=== PATIENT | female | born 1955 | race Caucasian/White ===

== ENCOUNTER 2017-03-03 12:42 | Emergency (ER) | payer SELFPAY ==
[~2017-03-03] VITALS: Ht 165.1 cm; Wt 77.1 kg
--- NOTE | 2017-03-03 12:55 | NUR ---
MSE DONE BY DR VICENTE AT BEDSIDE PATIENT IN ROOM 02A.
[2017-03-03] MEDS ORDERED: METF500T4 PO (13:00)
[2017-03-03] MEDS ORDERED: HYDR25TA4 PO (13:00)
[2017-03-03] MEDS ORDERED: LOSA50TA21 PO (13:00)
[2017-03-03] MEDS ORDERED: ACETAMINOPHEN/CODEINE 300-60 MG TABLET PO STA (13:00)
[2017-03-03] MEDS ORDERED: PRED2.5T PO (13:00)
[2017-03-03] MEDS ORDERED: ACETAMINOPHEN/CODEINE 300-30 MG TABLET PO ONE ×2 (13:15)
[2017-03-03 13:18] VITALS: BP 135/79
--- NOTE | 2017-03-03 13:20 | NUR ---
Patient discharged to home in stable conditon. Written and verbal after care instructions given. Patient verbalizes understanding of instructions.
[2017-03-03] MEDS ORDERED: ACETAMINOPHEN/CODEINE 300-30 MG TABLET ONE ×2 (13:21→13:25)
--- NOTE | 2017-03-03 13:21 | NUR ---
NO ADVERSE REACTION TO MEDICATIONS. PATIENT WILL FOLLOW WITH LIST OF PMD FOR PAIN MANAGEMENT.
== END 2017-03-03 13:40 | disposition home or self-care (01) ==
LOC: ER 12:42
DX: Z76.0 Encounter for issue of repeat prescription (principal); G89.29 Other chronic pain; M25.511 Pain in right shoulder; I10 Essential (primary) hypertension; E11.9 Type 2 diabetes mellitus without complications; Z88.1 Allergy status to other antibiotic agents; Z91.018 Allergy to other foods
CPT/HCPCS: A4663

== ENCOUNTER 2017-03-17 10:53 | Emergency (ER) | payer MEDICAID ==
[~2017-03-17] VITALS: Ht 165.1 cm; Wt 72.6 kg
[~2017-03-17 10:53] MED LIST: HYDR25TA4 PO; LOSA50TA21 PO; METF500T4 PO; PRED2.5T PO
--- NOTE | 2017-03-17 11:20 | NUR ---
Dr Durand at the bedside for eval and exam.
--- NOTE | 2017-03-17 11:36 | NUR ---
Patient discharged to home in stable conditon. Written and verbal after care instructions given. Patient verbalizes understanding of instructions.
[2017-03-17 11:37] VITALS: BP 143/85
== END 2017-03-17 11:40 | disposition home or self-care (01) ==
LOC: ER 10:53
DX: J20.9 Acute bronchitis, unspecified (principal); I10 Essential (primary) hypertension; E11.9 Type 2 diabetes mellitus without complications; M79.7 Fibromyalgia; M35.00 Sjogren syndrome, unspecified; Z88.1 Allergy status to other antibiotic agents; Z91.018 Allergy to other foods
CPT/HCPCS: A4663

== ENCOUNTER 2017-04-08 10:32 | Emergency (ER) | payer MEDICAID ==
[~2017-04-08] VITALS: Ht 165.1 cm; Wt 72.6 kg
[2017-04-08] MEDS ORDERED: PROMETHAZINE HCL 25 MG/1 ML VIAL IM ONE (11:15)
[2017-04-08] MEDS ORDERED: HYDROMORPHONE 1 MG/1 ML DISP.SYRIN IM ONE (11:15)
[2017-04-08] MEDS ORDERED: HYDROMORPHONE 2 MG/1 ML DISP.SYRIN ONE (11:36)
[2017-04-08] MEDS ORDERED: PROMETHAZINE HCL 25 MG/1 ML VIAL ONE (11:36)
[2017-04-08 11:39] VITALS: BP 131/77
--- NOTE | 2017-04-08 11:39 | NUR ---
PT WAS EVALUATED BY DR JENSEN. PT WAS D/C TO HOME. D/C INSTRUCTIONS GIVEN TO THE PT.
== END 2017-04-08 11:40 | disposition home or self-care (01) ==
LOC: ER 10:32
DX: Z76.0 Encounter for issue of repeat prescription (principal); G89.29 Other chronic pain; E11.9 Type 2 diabetes mellitus without complications; I10 Essential (primary) hypertension; M79.7 Fibromyalgia; Z88.1 Allergy status to other antibiotic agents; Z91.018 Allergy to other foods
CPT/HCPCS: 82962; 96372 ×2; 99284; A4663; J1170; J2550

== ENCOUNTER 2017-04-22 20:50 | Emergency (ER) | payer MEDICAID ==
[~2017-04-22] VITALS: Ht 165.1 cm; Wt 81.6 kg
[2017-04-22] MEDS ORDERED: ACETAMINOPHEN/CODEINE 300-30 MG TABLET PO ONE (21:45)
[2017-04-22] MEDS ORDERED: KETOROLAC TROMETHAMINE 15 MG INJ IM ONE (21:45)
[2017-04-22] MEDS ORDERED: KETOROLAC TROMETHAMINE 15 MG INJ ONE (22:13)
[2017-04-22] MEDS ORDERED: ACETAMINOPHEN/CODEINE 300-30 MG TABLET ONE (22:14)
--- NOTE | 2017-04-22 22:30 | NUR ---
Patient discharged to home in stable conditon. Written and verbal after care instructions given. Patient verbalizes understanding of instructions. PATIENT WILL WAITING IN WAITING ROOM UNTIL DAUGHTER RESEARCH AND DEVELOPMENT DIRECTOR PATIENT
[2017-04-22 22:32] VITALS: BP 148/75
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
== END 2017-04-22 22:33 | disposition home or self-care (01) ==
LOC: ER 20:53
DX: Z76.0 Encounter for issue of repeat prescription (principal); G89.29 Other chronic pain; M54.2 Cervicalgia; M25.561 Pain in right knee; M25.511 Pain in right shoulder; I10 Essential (primary) hypertension; E11.9 Type 2 diabetes mellitus without complications; M32.9 Systemic lupus erythematosus, unspecified; M79.7 Fibromyalgia; Z88.1 Allergy status to other antibiotic agents; M35.00 Sjogren syndrome, unspecified
CPT/HCPCS: A4663; J1885

== ENCOUNTER 2017-04-24 13:45 | Emergency (ER) | payer MEDICAID ==
[~2017-04-24] VITALS: Ht 165.1 cm; Wt 85.7 kg
[2017-04-24 14:44] LABS: BASOPHILS # (AUTO) 0.1 K/uL (0.0-8.0); BASOPHILS % (AUTO) 0.7 % (0.0-2.0); EOSINOPHILS # (AUTO) 0.1 K/uL (0.0-0.7); EOSINOPHILS % (AUTO) 1.8 % (0.0-7.0); HEMATOCRIT 38.9 % (31.2-41.9); HEMOGLOBIN 13.2 g/dL (10.9-14.3); LYMPHOCYTES # (AUTO) 1.8 K/uL (20.0-40.0); LYMPHOCYTES % (AUTO) 25.6 % (20.5-51.5); MEAN CORPUSCULAR HEMOGLOBIN 29.7 uug (24.7-32.8); MEAN CORPUSCULAR HGB CONC 34 g/dL (32.3-35.6); MEAN CORPUSCULAR VOLUME 87.7 fL (75.5-95.3); MONOCYTES # (AUTO) 0.3 K/uL (2.0-10.0); MONOCYTES % (AUTO) 4.2 % (0.0-11.0); NEUTROPHILS # (AUTO) 4.7 K/uL (1.8-8.9); NEUTROPHILS % (AUTO) 67.7 % (38.5-71.5); PLATELET COUNT (AUTO) 291 K/uL (179-408); RED BLOOD CELL COUNT(AUTO) 4.44 MIL/uL (3.63-4.92)
[2017-04-24 14:56] LABS: *BILIRUBIN,URIN NEGATIVE (NEGATIVE); *BLOOD, URINE Trace-intact (NEGATIVE); *CLARITY,URINE CLEAR (CLEAR); *COLOR,URINE YELLOW (YELLOW); *KETONES,URINE NEGATIVE (NEGATIVE); *PROTEIN,URINE NEGATIVE (NEGATIVE); *UROBILINOGEN,URINE 0.2 E.U./dl (NORMAL); LEUKOCYTE ESTERASE ,URINE TRACE (NEGATIVE); NITRITE, URINE NEGATIVE (NEGATIVE); UGLUCOSE NEGATIVE (NEGATIVE)
[2017-04-24 15:01] LABS: CREATININE 1.2 mg/dL (0.6-1.3); POTASSIUM 3.9 mmol/L (3.5-5.1)
[2017-04-24 15:06] LABS: SQUAMOUS EPITHELIAL CELL,UR FEW /HPF (NONE SEEN); WBC,URINE 0-3 /HPF (0-3)
[2017-04-24 15:10] LABS: BILIRUBIN,DIRECT 0.1 mg/dL (0.0-0.2); BILIRUBIN,TOTAL 0.7 mg/dL (0.2-1.0); TOTAL PROTEIN, SERUM 7.9 g/dL (6.4-8.2)
[2017-04-24 15:24] VITALS: BP 131/79
--- NOTE | 2017-04-24 15:24 | NUR ---
Patient discharged to home in stable conditon. Written and verbal after care instructions given. Patient verbalizes understanding of instructions.pt walks in steady gait.
== END 2017-04-24 15:25 | disposition home or self-care (01) ==
LOC: ER 13:45
DX: G89.29 Other chronic pain (principal); M54.2 Cervicalgia; I10 Essential (primary) hypertension; M32.9 Systemic lupus erythematosus, unspecified; E11.9 Type 2 diabetes mellitus without complications; M79.7 Fibromyalgia; Z88.1 Allergy status to other antibiotic agents
CPT/HCPCS: 36415; 85025; A4663